=== PATIENT | female | born 1995 | race American Indian/Alaskan Native ===

== ENCOUNTER 2019-04-07 16:10 | Emergency (ER) | payer SELFPAY ==
--- NOTE | 2019-04-07 17:35 | Event Note ---
ED Screening Note Date of service: 04/07/19 Time: 17:31 ED Screening Note: 23 y/o female comes in for right thumb injury. Pain 07/24 This initial assessment/diagnostic orders/clinical plan/treatment(s) is/are subject to change based on patients health status, clinical progression and re-assessment by fellow clinical providers in the ED. Further treatment and workup at subsequent clinical providers discretion. Patient/guardian urged not to elope from the ED as their condition may be serious if not clinically assessed and managed. Initial orders include:
[2019-04-07 17:37] VITALS: BP 114/69
--- NOTE | 2019-04-07 18:28 | XRay Report ---
PROCEDURE: Right thumb. TECHNIQUE: 3 views. HISTORY: thumb iniury now has pain. COMPARISONS: None. FINDINGS: There is a fracture involving the tuft of the distal phalanx. There is no significant displacement. T he remaining bones appear intact. The joint spaces appear normal. The soft tissues are unremarkable. IMPRESSION: Acute fracture of the distal tuft of the distal phalanx. This document is electronically signed by Brandon Al MD., April 07 2019 06:27:05 PM ET
[2019-04-07] MEDS ORDERED: IBUPROFEN PO ONE (18:51)
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
== END 2019-04-07 19:41 | disposition home or self-care (01) ==
LOC: ED 16:10
DX: S62.521A Displaced fracture of distal phalanx of right thumb, initial encounter for closed fracture (principal); Z79.899 Other long term (current) drug therapy; Y04.8XXA Assault by other bodily force, initial encounter; Y93.89 Activity, other specified; Y92.89 Other specified places as the place of occurrence of the external cause; Y99.8 Other external cause status
CPT/HCPCS: 99283

== ENCOUNTER 2019-09-08 14:52 | Emergency (ER) | payer SELFPAY ==
[2019-09-08 15:34] VITALS: BP 135/76
--- NOTE | 2019-09-08 15:36 | Emergency Department Report ---
Chief Complaint: Medical Clearance Stated Complaint: COLD SYM Time Seen by Provider: 09/08/19 15:32 - HPI History of Present Illness: pt states she has congestion that began two days ago. she states she has itchy and dry throat and mild dry cough. she denies any fever, no productive cough, no SOB, no N/V,D, no abd pain. no PMHx. no allergies to meds. LNMP: 08/31/19 pt is very well appearing vitals are normal on exam: pt is alert, non toxic appearing, no acute distress Atraumatic, normocephalic normal oropharynx normal TMs and canals bilaterally pale turbinates, no drainage normal breath sounds no w/r/r regular heart rate and rhythm, normal heart sounds no clinical signs symptoms of PNA or influenza symptoms and examination consistent with allergies/viral URI pt is presenting with a non medical emergency at this time discussed supportive care and symptomatic treatment with pt advised pt may take mucinex, claritin or zyrtec, and use flonase nasal spray over the counter. increase your fluid intake. may use humidfier, drink warm tea, eat warm soup broth, use warm salt water gargles. follow up with a primary care doctor in the next 2-3 days. return to the emergency room for any new or worsening symptoms. MSE screening note: Focused history and physical exam performed. Due to findings the following was ordered: ED Disposition for MSE Clinical Impression: Nasal congestion Allergies Qualifiers: Encounter type: initial encounter Qualified Code(s): T78.40XA - Allergy, unspecified, initial encounter Disposition: MED SCREENING EXAM-LEFT Is pt being admited?: No Does the pt Need Aspirin: No Condition: Stable Instructions: Allergies (ED) Additional Instructions: may take mucinex, claritin or zyrtec, and use flonase nasal spray over the counter. increase your fluid intake. may use humidfier, drink warm tea, eat warm soup broth, use warm salt water gargles. follow up with a primary care doctor in the next 2-3 days. return to the emergency room for any new or worsening symptoms. Referrals: [facility] [Provider Group] - 2-3 Days [facility] [Outside] - 2-3 Days [facility] [place] [Outside] - 2-3 Days Forms: Work/School Release Form(ED) Time of Disposition: 15:37 Print Language: UZBEK
== END 2019-09-08 16:25 | disposition left against medical advice (07) ==
LOC: ED 14:52
DX: T78.40XA Allergy, unspecified, initial encounter (principal); X58.XXXA Exposure to other specified factors, initial encounter

== ENCOUNTER 2020-11-25 00:16 | Outpatient (CLI) | payer MEDICAID ==
[2020-11-25 00:43] VITALS: BP 120/69
[2020-11-25 01:49] LABS: Bilirubin,Urine NEG (Negative); Blood,Urine NEG (Negative); Color,Urine Yellow (Yellow); Mucus,Urine FEW /HPF; Protein,Urine <15 mg/dL mg/dL (Negative); Urobilinogen,Urine < 2.0 mg/dL (<2.0)
[2020-11-25] MEDS ORDERED: ACETAMINOPHEN 325 MG TAB PO ONE (02:26)
--- NOTE | 2020-11-25 02:34 | Ultrasound Report ---
ULTRASOUND OBSTETRIC LIMITED ULTRASOUND BIOPHYSICAL PROFILE INDICATION / CLINICAL INFORMATION: s/p fall, no movement. Clinical Gestational Age (GA) in weeks, days: 31, 6 TECHNIQUE: Transabdominal. COMPARISON: None available. FINDINGS: BREATHING MOVEMENT = 2 GROSS BODY MOVEMENT = 2 TONE = 2 QUALITATIVE AMNIOTIC FLUID VOLUME = 2 TOTAL BIOPHYSICAL SCORE = 8/8 HEART RATE (beats per minute): 129 AMNIOTIC FLUID INDEX (cm) = 11.5 (normal = 7-24 cm) PRESENTATION: Cephalic. ADDITIONAL FINDINGS: Placenta is posterior fundal. No placental abruption. IMPRESSION: 1. Biophysical Score = 8/8 2. No acute sonographic abnormality. Signer Name: Katie Willoughby MD Signed: 11/25/2020 2:29 AM Workstation Name: [id number]
== END 2020-11-25 02:05 | disposition home or self-care (01) ==
LOC: TRG 00:16
PROVIDERS: ATTEND Obstetrics & Gynecology
DX: O26.893 Other specified pregnancy related conditions, third trimester (principal); Z3A.31 31 weeks gestation of pregnancy; W19.XXXA Unspecified fall, initial encounter
CPT/HCPCS: 59025; 76815; 76819; 81001